=== PATIENT | male | born 1995 | race Two or more races ===

== ENCOUNTER 2017-07-19 00:24 | Emergency (ER) | payer MEDICAID, OTHER ==
[~2017-07-19] VITALS: Ht 175.3 cm; Wt 99.8 kg
[2017-07-19 00:36] VITALS: BP 150/89
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
[2017-07-19 01:11] VITALS: BP 150/89
== END 2017-07-19 01:10 | disposition home or self-care (01) ==
LOC: EMR 00:46
DX: S01.511A Laceration without foreign body of lip, initial encounter (principal); Y04.0XXA Assault by unarmed brawl or fight, initial encounter; Y92.511 Restaurant or cafe as the place of occurrence of the external cause
CPT/HCPCS: 12011; 99284; Z7502